=== PATIENT | female | born 1990 | race Two or more races ===

== ENCOUNTER 2023-04-22 03:24 | Emergency (ER) | payer OTHER, MEDICAID ==
[~2023-04-22] VITALS: Ht 160 cm; Wt 100.0 kg
[2023-04-22 04:52] VITALS: BP 132/60; PULSE 98; RESP 20; TEMP 97.7; O2SAT 97
[2023-04-22] MEDS ORDERED: HYDROcodone-ACET 10/325MG TAB PO ONE (05:00)
[2023-04-22] MEDS ORDERED: CYCL-839 PO (05:32)
[2023-04-22] MEDS ORDERED: IBUP-1455 PO (05:32)
== END 2023-04-22 06:26 | disposition home or self-care (01) ==
LOC: ER 03:24
DX: S83.91XA Sprain of unspecified site of right knee, initial encounter (principal); I10 Essential (primary) hypertension; Z88.8 Allergy status to other drugs, medicaments and biological substances; W18.39XA Other fall on same level, initial encounter; Y93.89 Activity, other specified; Y92.89 Other specified places as the place of occurrence of the external cause; Y99.8 Other external cause status
CPT/HCPCS: 29505; 73564

== ENCOUNTER 2023-04-25 11:35 | Emergency (ER) | payer OTHER, MEDICAID ==
[~2023-04-25] VITALS: Ht 160 cm; Wt 109.1 kg
[~2023-04-25 11:35] MED LIST: CYCL-839 PO; IBUP-1455 PO
[2023-04-25] MEDS ORDERED: HYDR-4609 PO (14:19)
[2023-04-25 14:47] VITALS: BP 138/65; PULSE 68; RESP 16; TEMP 98.1; O2SAT 99
== END 2023-04-25 14:49 | disposition home or self-care (01) ==
LOC: ER 11:35
DX: S89.81XA Other specified injuries of right lower leg, initial encounter (principal); I10 Essential (primary) hypertension; Z88.6 Allergy status to analgesic agent; W18.39XA Other fall on same level, initial encounter; Y93.89 Activity, other specified; Y92.89 Other specified places as the place of occurrence of the external cause; Y99.8 Other external cause status

== ENCOUNTER 2023-11-05 17:32 | Emergency (ER) | payer OTHER, MEDICAID ==
[~2023-11-05] VITALS: Ht 157.5 cm; Wt 110.0 kg
[~2023-11-05 17:32] MED LIST changes: +HYDR-4609 PO
[2023-11-05] MEDS: LORazepam 2MG/ML-1ML VIAL ONE (18:03)
[2023-11-05] MEDS: SODIUM CHLORIDE 0.9% 1,000 ML IV ONE (18:41)
[2023-11-05] MEDS: levETIRAcetam 1000 mg/100ml 100 ML IV ONE (18:41)
[2023-11-05] MEDS: HYDROcodone-ACET 5/325MG TAB PO ONE (19:08)
[2023-11-05] MEDS: ACETAMINOPHEN 325 MG TAB PO ONE (19:08)
[2023-11-05] MEDS: cefTRIAXone 1GM/50ML D5W 50 ML IV ONE (19:09)
[2023-11-05] MEDS: ONDANSETRON HCL 4 MG/2 ML VIAL IV ONE (19:09)
[2023-11-05 19:17] LABS: Basophils # (auto) 0 10 ^3/uL (0-0.2); Basophils % (auto) 0.6 % (0.0-2.0); Eosinophils # (auto) 0.3 10 ^3/uL (0-0.8); Eosinophils % (auto) 4.7 % (0.0-7.0); Hematocrit 43.4 % (36.0-46.0); Hemoglobin 14.2 g/dL (12.2-16.2); Lymphocytes # (auto) 1.1 10 ^3/uL (0.4-5.4); Lymphocytes % (auto) 15.6 % (10.0-50.0); Mean Corpuscular Hemoglobin 29.7 pg (28.0-32.0); Mean Corpuscular Hgb Conc. 32.7 g/dL (32.0-36.0); Monocytes # (auto) 0.6 10 ^3/uL (0-1.3); Monocytes % (auto) 8.5 % (0.0-12.0); Neutrophils % (auto) 70.6 % (37.0-80.0); Red Blood Cells 4.77 10^6/uL (4.0-5.20); Red Cell Distribution Width 13.5 % (11.8-14.3); White Blood Cell 7.1 10^3/uL (4.4-10.8)
[2023-11-05 19:26] LABS: Chloride 107 mmol/L (98-107); Potassium 3.7 mmol/L (3.5-5.1); Sodium 138 mmol/L (136-145)
[2023-11-05 19:27] LABS: Anion Gap 7 (5-15); Carbon Dioxide 24 mmol/L (20-30)
[2023-11-05 19:28] LABS: Calcium 9.3 mg/dL (8.7-10.4)
[2023-11-05 19:32] LABS: BUN/Creatinine Ratio 8.2 (10.0-20.0); Blood Urea Nitrogen 5 mg/dL (9-23); Glucose 96 mg/dL (74-106)
[2023-11-05 20:00] VITALS: PULSE 60; RESP 18; O2SAT 98
[2023-11-05 21:00] VITALS: TEMP 97.9
[2023-11-06 00:45] LABS: COVID19 ANTIGEN SOFIA FIA NEGATIVE (NEGATIVE); Rapid Influenza A Negative (Negative); Rapid Influenza B Negative (Negative)
[2023-11-06 01:08] VITALS: BP 157/78; PULSE 76; RESP 16; O2SAT 97
[2023-11-06] MEDS ORDERED: IBUP-1456 PO (01:17)
[2023-11-06] MEDS ORDERED: AUG875T PO (01:17)
[2023-11-06] MEDS ORDERED: ZOFR4T PO (01:17)
== END 2023-11-06 02:19 | disposition home or self-care (01) ==
LOC: ER 17:32 → EDBD 17:32 → ER 11-06 01:40
DX: G40.909 Epilepsy, unspecified, not intractable, without status epilepticus (principal); J02.9 Acute pharyngitis, unspecified; R11.2 Nausea with vomiting, unspecified; R19.7 Diarrhea, unspecified; I11.0 Hypertensive heart disease with heart failure; I50.9 Heart failure, unspecified; F41.9 Anxiety disorder, unspecified; F32.9 Major depressive disorder, single episode, unspecified; Z20.822 Contact with and (suspected) exposure to COVID-19
CPT/HCPCS: 36415; 71045; 80048; 83605; 83880; 84484; 85025; 87040; 87426; 87804; 93005; 96365; 96368; 96375; 99285; J0696; J1953; J2060; J2405

== ENCOUNTER 2024-04-03 15:46 | Emergency (ER) | payer MEDICARE, MEDICAID ==
[~2024-04-03] VITALS: Ht 160 cm; Wt 104.0 kg
[~2024-04-03 15:46] MED LIST changes: +AUG875T PO; +IBUP-1456 PO; +ZOFR4T PO
[2024-04-03] MEDS: KETOROLAC TROMETH 60MG/2ML VIAL IM ONE (16:00)
--- NOTE | 2024-04-03 16:33 | DVH ---
CLINICAL INDICATION: Fall/trauma TECHNIQUE: XY R KNEE 3V XRAY Comparison: XY R KNEE 4V XRAY on DOS: 04/22/23 FINDINGS/IMPRESSION: : There is no evidence of acute fracture or dislocation. Soft tissues are unremarkable.
[2024-04-03] MEDS ORDERED: IBUP-1455 PO (16:51)
--- NOTE | 2024-04-03 16:52 | ED.PDOC ---
Musculoskeletal HPI Comments This patient is a pleasant but morbidly obese 33-year-old female who arrives to the ED today for evaluation of right knee pain status post fall in the shower proximally 1/2 hour prior to arrival. Patient states she slipped her shower and landed on her right knee. Patient denies any head trauma. Patient denies any blood loss. Patient is able to ambulate but is hobbling. Vital signs were stable on arrival. Patient denies any history of right knee concerns. Chief Complaint: Fall Injury Time Seen by MD: 15:48 Primary Care Provider: CONTOUR Reviewed Notes: Nurses Notes Allergies: Coded Allergies: Alprazolam (Verified Allergy, Unknown, 04/22/23) Home Meds Active Scripts Ibuprofen (Ibuprofen) 800 Mg Tab, 800 MG PO Q8HP PRN, #30 TAB Prov:CHRISTEL SANCHEZ MD 11/06/23 Ondansetron Odt 4MG Tab (ZOFRAN PO) 4 Mg Tb, 4 MG PO TID PRN, #15 TAB ODT TAB-DISSOLVE IN MOUTH, THEN SWALLOW Prov:CHRISTEL SANCHEZ MD 11/06/23 Amoxicillin & Pot Clavulanate (AUGMENTIN TABLET) 875 Mg Tb, 875 MG PO BID for 10 Days, #20 TAB Prov:CHRISTEL SANCHEZ MD 11/06/23 Hydrocodone-Acetaminophen (Hydrocodone Bitartrate/AC 7.5-300 mg) 1 Tab Tab, 1 TAB PO Q8HP PRN, #20 TAB Prov:LA ANDREW PAC 04/25/23 Cyclobenzaprine Hcl (Cyclobenzaprine Hcl) 10 Mg Tab, 10 MG PO TIDPRN PRN for 10 Days, #30 TAB Prov:GRAY MEJIA NP 04/22/23 Ibuprofen Micronized (Ibuprofen) 800 Mg Tab, 800 MG PO TID PRN for 10 Days, #30 TAB Prov:GRAY MEJIA NP 04/22/23 Information Source: Patient Mode of Arrival: Ambulatory Location: Right Extremity Location: Knee Timing: Minutes Prehospital treatment: None Severity: Moderate Able to Move Extremity: Yes Bear Weight: Limited Pain: Moderate Hand Dominance: Right Mechanism: Blunt Trauma Circumstances: Fall Onset of Symptoms: After Trauma Symptoms: Swelling, Pain DVT Risk Factors: NONE Past Medical History PAST MEDICAL HISTORY: Anxiety, CHF, Depression, HTN, Seizures Surgical History: Denies all surgeries CERTIFIED SURGICAL TECH/FIRST ASSISTANT History: No Pertinent CERTIFIED SURGICAL TECH/FIRST ASSISTANT History Family History Family History: Reviewed,noncontributory to illness Social History Smoker: Non-Smoker Alcohol: Denies ETOH Use Drugs: Denies Drug Use Lives In: Home Constitutional: denies: chills, diaphoresis, fatigue, fever, malaise, sweats, weakness, others EENTM: denies: blurred vision, double vision, ear bleeding, ear discharge, ear drainage, ear pain, ear ringing, eye pain, eye redness, hearing loss, mouth pain, mouth swelling, nasal discharge, nose bleeding, nose congestion, nose pain, photophobia, tearing, throat pain, throat swelling, voice changes, others Respiratory: denies: cough, hemoptysis, orthopnea, SOB at rest, shortness of breath, SOB with excertion, stridor, wheezing, others Cardiovascular: denies: chest pain, dizzy spells, diaphoresis, Dyspnea on exert ion, edema, irregular heart beat, left arm pain, lightheadedness, palpitations, PND, syncope, others Gastrointestinal: denies: abdomen distended, abdominal pain, blood streaked bowels, constipated, diarrhea, dysphagia, difficulty swallowing, hematemesis, melena, nausea, poor appetite, poor fluid intake, rectal bleeding, rectal pain, vomiting, others Genitourinary: denies: abnormal vagina bleeding, burning, dyspareunia, dysuria, flank pain, frequency, hematuria, incontinence, pain, , vagina discharge, urgency, others Neurological: denies: dizziness, fainting, headache, left sided numbness, left sided weakness, numbness, paresthesia, pre-existing deficit, right sided numbness, right sided weakness, seizure, speech problems, tingling, tremors, weakness, others Musculoskeletal: reports: others (Right knee pain); denies: back pain, gout, joint pain, joint swelling, muscle pain, muscle stiffness, neck pain Integumetry: denies: bruises, change in color, change in hair/nails, dryness, laceration, lesions, lumps, rash, wounds, others Allergic/Immunocompromised: denies: Difficulty Healing, Frequent Infections, H nikki, Itching, others Hematologic/Lymphatic: denies: anemia, blood clots, easy bleeding, easy bruising, swollen glands, others Endocrine: denies: excessive hunger, excessive sweating, excessive thirst, excessive urination, flushing, intolerance to cold, intolerance to heat, unexplained weight gain, unexplained weight loss, others Psychiatric: denies: anxiety, bipolar disorder, depression, hopeless, panic disorder, schizophrenia, sleepless, suicidal, others Physical Exam General Appearance: Moderate Distress ([id number] distress due to right knee pain concerns.), Normal HEENT: Normal ENT Inspection, Pharynx Normal, TMs Normal Neck: Full Range of Motion, Non-Tender, Normal, Normal Inspection Respiratory: Chest Non-Tender, Lungs Clear, No Accessory Muscle Use, No Respiratory Distress, Normal Breath Sounds Cardiovascular: No Edema, No JVD, No Murmur, No Gallop, Normal Peripheral Pulses, Regular Rate/Rhythm Breast Exam: Deferred Gastrointestinal: No Organomegaly, Non Tender, No Pulsatile Mass, Normal Bowel Sounds, Soft Genitalia: Deferred Pelvic: Deferred Rectal: Deferred Extremities: Other (Diffuse anterior tenderness to palpation throughout the right knee region around the tibial tuberosity and patella tendon area. No ecchymosis or erythema noted. Possible mild edema. Mild reduced range of motion. 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 Was a procedure done?: No Differential Diagnosis EXT Differential Diagnosis: Fracture, Sprain, Contusion X-Ray, Labs, Meds, VS Vital Signs Date Time Temp Pulse Resp B/P (MAP) Pulse Ox O2 Delivery O2 Flow Rate FiO2 04/03/24 15:59 98.0 69 18 158/98 (118) 99 X-Ray, Labs, Meds, VS Comment All studies performed in the ED were evaluated by me personally. Imaging studies of the right knee were unremarkable for any acute fractures. Unremarkable soft tissue evaluation. It appears the patient sustained a contusion of the right knee. Patient was provided with a an Josh wrap at discharge. Advised patient utilize anti-inflammatory as well as ice therapy. Time of 1ST Reevaluation: 16:50 Reevaluation 1ST: Improved Consultation: PCP Patient Education/Counseling: Diagnosis, Treatment Family Education/Counseling: Diagnosis, Treatment Departure 1 Departure Time of Disposition: 16:50 Impression: Primary Impression: Contusion of right knee Disposition: HOME / SELF CARE / HOMELESS Condition: Stable Additional Instructions: Advised patient utilize anti-inflammatory as needed for symptomatic relief as well as ice therapy. Patient can utilize Josh wrap as long as it is aiding in the healing process. e-Prescriptions Ibuprofen Micronized (Ibuprofen) 800 Mg Tab 800 MG PO Q8HP PRN, #20 TAB Prov: LA ANDREW PAC 04/03/24 Discharged With: Self, Friend Critical Care Note Critical Care Time?: No Stability Stability form required: No Heart Score Heart Score: Heart Score Response (Comments) Value History N/A 0 EKG N/A 0 Age N/A 0 Risk Factors N/A 0 Troponin N/A 0 Total 0 LA ANDREW PAC Apr 03, 2024 16:52
[2024-04-03 19:31] VITALS: BP 149/75; PULSE 60; RESP 16; TEMP 97.5; O2SAT 100
== END 2024-04-03 19:45 | disposition home or self-care (01) ==
LOC: ER 15:46
DX: S80.01XA Contusion of right knee, initial encounter (principal); I11.0 Hypertensive heart disease with heart failure; I50.9 Heart failure, unspecified; W18.2XXA Fall in (into) shower or empty bathtub, initial encounter; Y93.89 Activity, other specified; Y92.091 Bathroom in other non-institutional residence as the place of occurrence of the external cause; Y99.8 Other external cause status
CPT/HCPCS: 73562; 96372; 99283; J1885

== ENCOUNTER 2025-02-16 22:48 | Emergency (ER) | payer OTHER, MEDICAID ==
[~2025-02-16] VITALS: Ht 160 cm; Wt 105.0 kg
[2025-02-16 22:49] VITALS: BP 191/86; RESP 18; TEMP 97.4; O2SAT 97
[2025-02-16 22:53] VITALS: PULSE 65
--- NOTE | 2025-02-16 23:19 | ED.PDOC ---
HPI Comments 34-year-old female who came to the chest pains. Patient has a history of hypertension, diabetes and seizures. States she has good compliance to her medications. For the past 2 hours, she has been experiencing substernal chest pains, pressure, constant, nonradiating, associated with shortness a breath, headaches, nausea, and vomiting 3 times. Pressure taken at home shows SBP> 200. Upon arrival blood pressure was 191/86 mm Hg Chief Complaint: Chest Pain Time Seen by MD: 23:18 Primary Care Provider: CONTOUR Reviewed Notes: Nurses Notes Allergies: Coded Allergies: Alprazolam (Verified Allergy, Unknown, 04/22/23) Home Meds Active Scripts Ibuprofen Micronized (Ibuprofen) 800 Mg Tab, 800 MG PO Q8HP PRN, #20 TAB Prov:LA ANDREW PAC 04/03/24 Ibuprofen (Ibuprofen) 800 Mg Tab, 800 MG PO Q8HP PRN, #30 TAB Prov:CHRISTEL SANCHEZ MD 11/06/23 Ondansetron Odt 4MG Tab (ZOFRAN PO) 4 Mg Tb, 4 MG PO TID PRN, #15 TAB ODT TAB-DISSOLVE IN MOUTH, THEN SWALLOW Prov:CHRISTEL SANCHEZ MD 11/06/23 Amoxicillin & Pot Clavulanate (AUGMENTIN TABLET) 875 Mg Tb, 875 MG PO BID for 10 Days, #20 TAB Prov:CHRISTEL SANCHEZ MD 11/06/23 Hydrocodone-Acetaminophen (Hydrocodone Bitartrate/AC 7.5-300 mg) 1 Tab Tab, 1 TAB PO Q8HP PRN, #20 TAB Prov:LA ANDREW PAC 04/25/23 Cyclobenzaprine Hcl (Cyclobenzaprine Hcl) 10 Mg Tab, 10 MG PO TIDPRN PRN for 10 Days, #30 TAB Prov:GRAY MEJIA NP 04/22/23 Ibuprofen Micronized (Ibuprofen) 800 Mg Tab, 800 MG PO TID PRN for 10 Days, #30 TAB Prov:GRAY MEJIA COLOR CORRECTOR 04/22/23 Information Source: Patient Mode of Arrival: Wheelchair Severity: Moderate Timing: Hours Duration: Since onset Location: Substernal Radiation: No Radiation Quality: Pressure Onset: With Light Exertion Cardiac Risk Factors: HTN, Diabetes Associated Signs and Symptoms: N/V Past Medical History PAST MEDICAL HISTORY: Anxiety, CHF, Depression, DM, HTN, Seizures Surgical History: Denies all surgeries HVAC DESIGN ENGINEER History: No Pertinent HVAC DESIGN ENGINEER History Family History Family History: Reviewed,noncontributory to illness Social History Smoker: Non-Smoker Alcohol: Denies ETOH Use Drugs: Denies Drug Use Lives In: Home Constitutional: denies: chills, diaphoresis, fatigue, fever, malaise, sweats, weakness, others EENTM: denies: blurred vision, double vision, ear bleeding, ear discharge, ear drainage, ear pain, ear ringing, eye pain, eye redness, hearing loss, mouth pa in, mouth swelling, nasal discharge, nose bleeding, nose congestion, nose pain, photophobia, tearing, throat pain, throat swelling, voice changes, others Respiratory: reports: shortness of breath; denies: cough, hemoptysis, orthopnea, SOB at rest, SOB with excertion, stridor, wheezing, others Cardiovascular: reports: chest pain; denies: dizzy spells, diaphoresis, Dyspnea on exertion, edema, irregular heart beat, left arm pain, lightheadedness, palpitations, PND, syncope, others Gastrointestinal: reports: nausea, vomiting; denies: abdomen distended, abdominal pain, blood streaked bowels, constipated, diarrhea, dysphagia, difficulty swallowing, hematemesis, melena, poor appetite, poor fluid intake, rectal bleeding, rectal pain, others Genitourinary: denies: abnormal vagina bleeding, burning, dyspareunia, dysuria, flank pain, frequency, hematuria, incontinence, pain, , vagina discharge, urgency, others Neurological: reports: headache; denies: dizziness, fainting, left sided numbness, left sided weakness, numbness, paresthesia, pre-existing deficit, right sided numbness, right sided weakness, seizure, speech problems, tingling, tremors, weakness, others Musculoskeletal: denies: back pain, gout, joint pain, joint swelling, muscle pain, muscle stiffness, neck pain, others Integumetry: denies: bruises, change in color, change in hair/nails, dryness, laceration, lesions, lumps, rash, wounds, others Allergic/Immunocompromised: denies: Difficulty Healing, Frequent Infections, Hives, Itching, others Hematologic/Lymphatic: denies: anemia, blood clots, easy bleeding, easy bruising, swollen glands, others Endocrine: denies: excessive hunger, excessive sweating, excessive thirst, excessive urination, flushing, intolerance to cold, intolerance to heat, unexplained weight gain, unexplained weight loss, others Psychiatric: denies: anxiety, bipolar disorder, depression, hopeless, panic disorder, schizophrenia, sleepless, suicidal, others Physical Exam General Appearance: No Apparent Distress, Normal HEENT: Normal ENT Inspection, Pharynx Normal, TMs Normal Neck: Full Range of Motion, Non-Tender, Normal, Normal Inspection Respiratory: Chest Non-Tender, Lungs Clear, No Accessory Muscle Use, No Respiratory Distress, Normal Breath Sounds Cardiovascular: No Edema, No JVD, No Murmur, No Gallop, Normal Peripheral Pulses, Regular Rate/Rhythm Breast Exam: Deferred Gastrointestinal: No Organomegaly, Non Tender, No Pulsatile Mass, Normal Bowel Sounds, Soft Genitalia: Deferred Pelvic: Deferred Rectal: Deferred Extremities: No calf tenderness, Normal capillary refill, Normal inspection, Normal range of motion, Non-tender, No pedal edema Musculoskeletal : Apperance: Normal Neurologic: 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 Was a procedure done?: No CP Differential Dx Differential Diagnosis: Angina, Anxiety / Panic Attack Differential Diagnosis: Angina, Chest Wall Pain, Costochondritis, Esophageal reflux/spasm, Gastritis, Myocardial Infarction, Pneumonia X-Ray, Labs, Meds, VS Vital Signs Date Time Temp Pulse Resp B/P (MAP) Pulse Ox O2 Delivery O2 Flow Rate FiO2 02/16/25 22:53 65 02/16/25 22:49 97.4 68 18 191/86 97 97.4 Lab Test 02/16/25 23:08 Range/Units White Blood Count 9.5 4.4-10.8 10^3/uL Red Blood Count 4.51 4.0-5.20 10^6/uL Hemoglobin 13.9 12.2-16.2 g/dL Hematocrit 40.9 36.0-46.0 % Mean Corpuscular Volume 90.6 80.0-100.0 fL Mean Corpuscular Hemoglobin 30.8 28.0-32.0 pg Mean Corpuscular Hemoglobin Concent 34.0 32.0-36.0 g/dL Red Cell Distribution Width 12.6 11.8-14.3 % Platelet Count 322 140-450 10^3/uL Mean Platelet Volume 9.1 6.9-10.8 fL Neutrophils (%) (Auto) 59.6 37.0-80.0 % Lymphocytes (%) (Auto) 30.2 10.0-50.0 % Monocytes (%) (Auto) 5.8 0.0-12.0 % Eosinophils (%) (Auto) 3.6 0.0-7.0 % Basophils (%) (Auto) 0.8 0.0-2.0 % Neutrophils # (Auto) 5.7 1.6-8.6 10 ^3/uL Lymphocytes # (Auto) 2.9 0.4-5.4 10 ^3/uL Monocytes # (Auto) 0.6 0-1.3 10 ^3/uL Eosinophils # (Auto) 0.3 0-0.8 10 ^3/uL Basophils # (Auto) 0.1 0-0.2 10 ^3/uL Nucleated Red Blood Cells 0.2 % Sodium Level 140 136-145 mmol/L Potassium Level 3.5 3.5-5.1 mmol/L Chloride Level 106 98-107 mmol/L Carbon Dioxide Level 22 20-31 mmol/L Anion Gap 12 5-15 Blood Urea Nitrogen 6 L 9-23 mg/dL Creatinine 0.70 0.550-1.02 mg/dL Glomerular Filtration Rate Calc 116 >90 mL/min BUN/Creatinine Ratio 8.6 L 10.0-20.0 Serum Glucose 90 74-106 mg/dL Calcium Level 8.7 8.7-10.4 mg/dL Magnesium Level 1.9 1.6-2.6 mg/dL Total Bilirubin 0.4 0.2-1.0 mg/dL Aspartate Amino Transferase (AST) 28 13-40 U/L Alanine Aminotransferase (ALT) 35 7-40 U/L Alkaline Phosphatase 98 46-116 U/L Troponin I High Sensitivity < 3 L </=34 ng/L Total Protein 7.8 5.7-8.2 g/dL Albumin 4.4 3.2-4.8 g/dL Time of 1ST Reevaluation: 23:13 Reevaluation 1ST: Unchanged Patient Education/Counseling: Diagnosis, Treatment Family Education/Counseling: No Family Present SEPSIS Sepsis Screen Date sepsis recognized/suspect: Feb 16, 2025 Time Sepsis recognized/suspect: 2250 Recent Procedure: No On Antibiotic Therapy: No Respiratory Rate >20: No Heart Rate >90: No Temp<36 C (96.8 F) or >38.3 C: No SBP <90 or MAP <65 mmHG: No New Acute Mental Status Change: No Is the patient on CPAP, BIPAP,: No Physician Orders Electrocardigram (02/16/25 22:51) Chest Xray 1 View (02/16/25 22:51) Vital Signs Date Time Temp Pulse Resp B/P (MAP) Pulse Ox O2 Delivery O2 Flow Rate FiO2 02/16/25 22:53 65 02/16/25 22:49 97.4 68 18 191/86 97 97.4 Laboratory Tests Test 02/16/25 23:08 White Blood Count 9.5 10^3/uL (4.4-10.8) Departure 1 Departure Time of Disposition: 01:00 Impression: Primary Impression: Atypical chest pain Disposition: 01 HOME / SELF CARE / HOMELESS Condition: Stable Discharged With: Self Critical Care Note Critical Care Time?: Yes (35 min-critical care time only) Critical care comment: Hypertensive urgency Stability Stability form required: No Heart Score Heart Score: Heart Score Response (Comments) Value History Moderate Suspicious 1 EKG Repolarization Disturb 1 Age <45 0 Risk Factors 1 or 2 risk factors 1 Troponin Normal limit 0 Total 3 I personally scribed for ULISES BRIDGES MD ([email or web address]) on 02/16/25 at 23:19. Electronically submitted by Ronak Hurley ([email or web address]). ULISES BRIDGES MD Feb 16, 2025 23:19
[2025-02-16 23:21] LABS: Hematocrit 40.9 % (36.0-46.0); Hemoglobin 13.9 g/dL (12.2-16.2); Mean Corpuscular Hemoglobin 30.8 pg (28.0-32.0); Mean Corpuscular Volume 90.6 fL (80.0-100.0); Nucleated Red Blood Cells % 0.2 %
--- NOTE | 2025-02-16 23:31 | DVH ---
CHEST RADIOGRAPH Indication: chest pain Technique: Single frontal view of the chest was obtained COMPARISON: XY CHEST PORTABLE on DOS: 11/05/23 FINDINGS: Lines and Tubes: None Lungs: Clear Pleura: No effusion. No pneumothorax. Cardiomediastinal contours: Unremarkable Bones: Unremarkable IMPRESSION: 1. No acute disease.
[2025-02-17 00:33] LABS: Alanine Aminotransferase 35 U/L (7-40); Alkaline Phosphatase 98 U/L (46-116); Anion Gap 12 (5-15); BUN/Creatinine Ratio 8.6 (10.0-20.0); Carbon Dioxide 22 mmol/L (20-31); Chloride 106 mmol/L (98-107); Glucose 90 mg/dL (74-106); Magnesium 1.9 mg/dL (1.6-2.6); Potassium 3.5 mmol/L (3.5-5.1); Sodium 140 mmol/L (136-145); Total Protein 7.8 g/dL (5.7-8.2)
[2025-02-17 00:34] LABS: Albumin 4.4 g/dL (3.2-4.8); Bilirubin, Total 0.4 mg/dL (0.2-1.0)
[2025-02-17 00:38] LABS: Blood Urea Nitrogen 6 mg/dL (9-23); Calcium 8.7 mg/dL (8.7-10.4)
--- NOTE | 2025-02-18 00:20 | ECG ---
[facility] Test Date: 2025-02-16 Test Time: 22:53:56 Pat Name: VIVIANA STAFFORD Department: Room: Gender: F Provider Scribe: : [id number] Requested By: ULISES BRIDGES Order Number: [id number] Reading MD: Trenton Edwards Measurements Intervals [place] Rate: 65 P: 24 [place]: 123 QRS: -6 QRSD: 95 T: 11 QT: 443 QTc: 461 Interpretive Statements Sinus rhythm Left ventricular hypertrophy Electronically Signed On 02-19-2025 22:10:13 PDT by Trenton Edwards Please click the below link to view image of tracing.
== END 2025-02-17 04:07 | disposition home or self-care (01) ==
LOC: ER 22:48
DX: R07.89 Other chest pain (principal); I11.0 Hypertensive heart disease with heart failure; I50.9 Heart failure, unspecified; E11.9 Type 2 diabetes mellitus without complications; Z79.899 Other long term (current) drug therapy
CPT/HCPCS: 36415; 71045; 80053; 83735; 84484; 85025; 93005